=== PATIENT | male | born 1995 | race Caucasian/White ===

== ENCOUNTER 2018-11-02 10:47 | Emergency (ER) | payer OTHER ==
[~2018-11-02] VITALS: Ht 175.3 cm; Wt 95.5 kg
[2018-11-02 10:52] VITALS: TEMP 97.8
[2018-11-02] MEDS ORDERED: ULTRAM 50MG TAB50 MG PO (11:48)
[2018-11-02] MEDS ORDERED: AMOXICILLIN 50500 MG PO (11:48)
[2018-11-02 11:58] VITALS: BP 145/84; PULSE 61
== END 2018-11-02 12:24 | disposition home or self-care (01) ==
LOC: COL.ER 10:47
DX: K02.9 Dental caries, unspecified (principal)